=== PATIENT | male | born 2005 | race Two or more races ===

== ENCOUNTER 2025-06-24 10:06 | Emergency (ER) | payer MEDICAID, SELFPAY ==
[2025-06-24 10:07] VITALS: BMI 24.3
[2025-06-24 10:29] VITALS: BP 135/76; PULSE 63; RESP 17; TEMP 36.9; O2SAT 97
--- NOTE | 2025-06-24 11:18 | XR_ITS ---
Examination: AP lateral chest 2 views Technique: AP lateral chest 2 views. Date and time: 2024, 11:26 AM. Indications: Coughing shortness of breath beginning 2 weeks ago. Findings: Normal heart size. Lungs are clear. Osseous structures are intact. Impression: No active disease.
--- NOTE | 2025-06-24 11:34 | PD.EDURI ---
Upper Respiratory Inf. RME/HPI General Chief Complaint: Flu Like Symptoms Stated Complaint: I THINK MY LUNG IS NOT EXPANDING x 3 DAYS Time Seen by Provider: 06/24/25 10:19 Arrival date/time: 06/24/25 10:06 This is a 20-year-old male that comes into the emergency room with complaints of cough, runny nose, and sore throat. 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 Patient states he was on Diflucan. Patient denies any other complaints. Patient denies any sick contacts. Related Data Previous Rx's ?Medication ?Instructions ?Recorded fluconazole 200 mg tablet 400 mg (2 x 200 mg) PO QDAY #60 07/08/24 tabs ibuprofen 600 mg tablet 600 mg PO Q8H PRN pain #14 tabs 06/24/25 loratadine 10 mg tablet 10 mg PO QDAY #30 tabs 06/24/25 Allergies Allergy/AdvReac Type Severity Reaction Status Date / Time No Known Allergies Allergy Verified 06/24/25 10:09 Review of Systems Review of Systems Systems Reviewed: All systems reviewed, normal except as documented Past Medical History Social History SMOKING STATUS: Never smoker ED Exam Narrative Physical exam: VITAL SIGNS: Reviewed. GENERAL APPEARANCE: Alert and interactive, follows commands, no acute distress, HEAD AND FACE: Non-traumatic. ENT: PERRL, conjuctiva pink and clear, eyelid no trauma, Mucous membrane moist. NECK: Supple, nontender, no nuchal rigidity. CHEST: No tenderness, no crepitus, no paradoxical movement, no retractions. LUNGS: Clear, well ventilated, symmetric, no rales, no wheezing, no rhonchi, no stridor, good breath sounds bilaterally. HEART: Regular rate, regular rhythm, no murmur, no gallops. ABDOMEN: Soft, nondistended, no guarding, nontender, no rebound, no masses, NEUROLOGICAL: Gross motor function intact sensory function intact, Appropriate for age. MUSCULOSKELETAL: low back nontender, full range of motion. EXTREMITIES: No redness no swelling no skin breakdown on bilateral foot and leg. Distal neurovascular status intact bilateral foot SKIN: Color pink, dry, no rash, no lacerations, no abrasions, no contusions. Course Quality Measures none Orders Category Date Time Status Bedside COVID-19 Antigen Test NOW Care 06/24/25 11:19 Completed Bedside Influenza A&B Antigen Test NOW Care 06/24/25 11:19 Completed XR chest 2V Stat Exams 06/24/25 11:18 Completed Strep A Rapid Stat Lab 06/24/25 11:35 Completed Acetaminophen Tab [Tylenol ES Tab] Med 06/24/25 11:34 Discontinued 1,000 mg PO X1 ONE DiphenhydrAMINE [Benadryl] Med 06/24/25 11:18 Discontinued 50 mg PO X1 ONE Ibuprofen Tab [Motrin Tab] Med 06/24/25 11:18 Discontinued 800 mg PO X1 ONE Vital Signs Vital signs: Vital Signs Temperature 98.5 F 06/24/25 10:29 Pulse Rate 63 06/24/25 10:29 Respiratory Rate 17 06/24/25 10:29 Blood Pressure 135/76 H 06/24/25 10:29 Pulse Oximetry (%) 97 06/24/25 10:29 Oxygen Delivery Method Room Air 06/24/25 10:29 Upper Respiratory Infection MDM Narrative MDM Narrative:: chest x ray shows: Findings: Normal heart size. Lungs are clear. Osseous structures are intact. Impression: No active disease. Patient given Tylenol ibuprofen and Benadryl. Patient states states she is itchiness is better. Patient has a rash to skin. Patient skin is kind of dry. I did tell patient to moisturize skin. I did also told patient to take an antihistamine daily. Will prescribe 1 today. COVID and flu swabs are negative. Chest x-ray negative. I told patient that he is likely to have an upper respiratory infection to follow-up with primary provider in 1 to 2 days. [place] to the emergency room symptoms change or worsen. Dragon dictation: Although this document has been carefully reviewed, there may still be some phonetic and other typographical errors. These errors are purely grammatical due to imperfections in the software program and should not be construed in any way to compromise the substance of the patient's medical care during this visit. Patient data External records reviewed:: [facility] previous records Clinical information provided by:: patient Social determinants that could affect healthcare access:: none Patient has the following chronic illnesses:: none How is presenting disease/condition affected by chronic disease/condition?: no chronic disease Evaluation data The following diagnostics were reviewed and interpreted by me:: lab results and radiology exam(s) Lab and/or radiology exams considered but not ordered:: none Interpretation Summary: see note Medications / Prescriptions Medications or Prescriptions considered but not ordered:: none Medication administrations:: Medication Administration History Discontinued Medications Acetaminophen (Acetaminophen 500 Mg Tablet) 1,000 mg PO X1 ONE Stop: 06/24/25 11:35 Last Admin: 06/24/25 11:42 Dose: 1,000 mg Documented By: VAL Diphenhydramine HCl (Diphenhydramine 25 Mg Capsule) 50 mg PO X1 ONE Stop: 06/24/25 11:19 Last Admin: 06/24/25 11:42 Dose: 50 mg Documented By: VAL Ibuprofen (Ibuprofen Tab 400 Mg Tablet) 800 mg PO X1 ONE Stop: 06/24/25 11:19 Last Admin: 06/24/25 11:42 Dose: 800 mg Documented By: VAL see [facility] Consultations Consultation(s) initiated? (list below): No Diagnosis Upper Respiratory Differential Diagnosis: upper respiratory infection, otitis media, sinusitis, viral infection, bronchitis and influenza Most likely diagnosis given after review of the tests above:: uri Admission Indicated Admission indicated?: not indicated Admission Request Was there a request for admission?: No Disposition Plan Disposition Plan: Discharge Discharge Attestation Discharge Attestation: The patient and all family members were given an opportunity to ask questions and understood the discharge instructions. Discharge instructions specifically effects, indications for sooner follow up or return to the emergency department, and the expected course of current diagnosis. Patient condition: Stable Discharge Plan Plan Patient Disposition: HOME (Self Care) Patient condition on transfer: Stable Prescriptions/Referrals Prescriptions/Med Rec: New loratadine 10 mg tablet 10 mg PO QDAY Qty: 30 0RF ibuprofen 600 mg tablet 600 mg PO Q8H PRN (Reason: pain) Qty: 14 0RF No Action fluconazole 200 mg tablet 400 mg PO QDAY Qty: 60 0RF Referrals: No Primary/Family,Physician [Primary Care Provider] - In 1 week Problem List Clinical Impression: URI (upper respiratory infection) Patient/Caregiver Discharge Instructions Discharge Activity: activity as tolerated Education Materials: ED URI, Viral, No Abx (Adult) Additional Instructions: Follow up with primary provider in 1-2 days. Come back to ED if symptoms change or worsen Print Language: [place] Stand Alone Forms: Elizabet Award Info., Patient Portal Info Letter PA/SOUNDING DEVICE OPERATOR Supervising Physician PA/SOUNDING DEVICE OPERATOR Supervising Physician: [email or web address]
[2025-06-24] MEDS: ACETAMINOPHEN 500 MG TABLET 1000 MG PO (11:42)
[2025-06-24] MEDS: IBUPROFEN TAB 400 MG TABLET 800 MG PO (11:42)
[2025-06-24 12:46] LABS: Strep A Rapid Negative (Negative)
== END 2025-06-24 15:02 | disposition home or self-care (01) ==
PROVIDERS: Nurse Practitioner Family; Emergency Provider Emergency Medicine
DX: J06.9 Acute upper respiratory infection, unspecified (principal)
CPT/HCPCS: 71046; 80329; 87651; 99283; A9270; G0480